=== PATIENT | female | born 1970 | race Caucasian/White ===

== ENCOUNTER 2017-03-06 09:00 | Inpatient (IN) | payer MEDICARE, MEDICAID ==
[2017-03-06] MEDS ORDERED: Bupivacaine 0.5%/EPINEPHrine 1:200,000 50 ML MDV ONE (11:08)
[2017-03-06] MEDS ORDERED: HYDROmorphone/Normal Saline 15 MG/30 ML PCA IV PRN (11:53)
[2017-03-06] MEDS ORDERED: Naloxone 0.4 MG/ML SDV IVPUSH PRN (11:53)
[2017-03-06] MEDS ORDERED: Naloxone 0.4 MG/ML SDV IV PRN (12:01)
[2017-03-06] MEDS ORDERED: Dextrose 5%-Lactated Ringers 1,000 ML IV SCH (12:15)
[2017-03-06] MEDS ORDERED: fentaNYL 25 MCG/HR Transdermal Patch TRDERM SCH (13:30)
[2017-03-06] MEDS ORDERED: Rocuronium 50 MG/5 ML Vial ONE (13:37)
[2017-03-06] MEDS ORDERED: Glycopyrrolate 0.2 MG/ML 5 ML MDV ONE (13:37)
[2017-03-06] MEDS ORDERED: Ondansetron 4 MG/2 ML SDV ONE (13:37)
[2017-03-06] MEDS ORDERED: Dexamethasone 4 MG/ML SDV ONE (13:37)
[2017-03-06] MEDS ORDERED: Neostigmine Methylsulfate 1 MG/ML 5 ML Syringe ONE (13:37)
[2017-03-06] MEDS ORDERED: Succinylcholine 200 MG/10 ML MDV ONE (13:37)
[2017-03-06] MEDS ORDERED: Midazolam 1 MG/ML 2 ML SDV ONE (13:41)
[2017-03-06] MEDS ORDERED: Propofol 200 MG/20 ML SDV ONE (13:41)
[2017-03-06] MEDS: cefOXitin 2 GM in Sodium Chloride 0.9% 50 ML IV ONE ×2 (14:37→20:46)
[2017-03-06] MEDS ORDERED: Linezolid 200 MG/100 ML Bag IRR ONE ×2 (14:52→15:10)
[2017-03-06] MEDS: Meropenem 500 MG SDV ONE ×2 (14:52→15:10)
[2017-03-06] MEDS ORDERED: Lactated Ringers 1,000 ML ONE ×2 (16:47→16:48)
[2017-03-06] MEDS ORDERED: hydrOXYzine HCl 100 MG/2 ML SDV IM ONE (17:49)
[2017-03-06] MEDS ORDERED: hydrOXYzine HCl 100 MG/2 ML SDV IM PRN (19:08)
[2017-03-06] MEDS ORDERED: Ondansetron 4 MG/2 ML SDV IV PRN (19:08)
[2017-03-06] MEDS: Cyclobenzaprine 10 MG Tab PO PRN (20:22)
[2017-03-06] MEDS: VERIFY FENTANYL PATCH TOP SCH ×2 (20:53→20:54)
[2017-03-06] MEDS: Dextrose 5%-Lactated Ringers 1,000 ML IV SCH (21:05)
[2017-03-06] MEDS: Amitriptyline 25 MG Tab PO SCH (21:05)
[2017-03-06] MEDS: ceFAZolin 2 GM in Premix Bag 1 BAG IV SCH (23:03)
[2017-03-07] MEDS ORDERED: Lactated Ringers 500 ML IV SCH (00:15)
[2017-03-07] MEDS: Cyclobenzaprine 10 MG Tab PO PRN ×3 (02:38→15:20)
[2017-03-07] MEDS: Dextrose 5%-Lactated Ringers 1,000 ML IV SCH (04:05)
[2017-03-07] MEDS ORDERED: Levothyroxine 25 MCG Tab PO SCH (07:30)
[2017-03-07] MEDS ORDERED: Dextrose 5%-Lactated Ringers 1,000 ML IV SCH (07:52)
[2017-03-07] MEDS: ceFAZolin 2 GM in Sodium Chloride 0.9% 50 ML IV SCH ×2 (08:40→16:59)
[2017-03-07] MEDS: DULoxetine 30 MG Cap PO SCH (08:42)
[2017-03-07] MEDS: Levothyroxine 75 MCG Tab PO SCH (08:42)
[2017-03-07] MEDS: Furosemide 40 MG Tab PO SCH (08:42)
[2017-03-07] MEDS: Potassium Chloride 20 MEQ Tab.ER PO SCH (08:42)
--- NOTE | 2017-03-07 08:49 | PN ---
DATE OF SERVICE: 03/06/2017 SUBJECTIVE: Jeff is postop day one. She states her pain is controlled. She has been up sitting in the chair ambulating. Denies any other associated signs and symptoms. OBJECTIVE: GENERAL: Jeff is a 46-year-old female. VITAL SIGNS: TPR is 98.7, 74, 18. Blood pressure 94/47. HEENT: Negative. NECK: Supple. HEART: Regular rate and rhythm. LUNGS: Clear. ABDOMEN: Dressings dry and intact. Abdominal binder is on. She has two GREYSON drains, one put out 110 and #2 put out 110 of a pink serosanguineous drainage. EXTREMITIES: SCDs are on and there is no peripheral edema. ASSESSMENT: Open repair of umbilical incarcerated incisional hernia with mesh and panniculectomy for incarcerated incisional hernia, umbilical hernia, and chronic panniculitis. Date of surgery 03/06/2017. PLAN: 1. Step 4 gastric bypass diet, double portions. 2. Dressing off, may shower. 3. Discontinue [employer] and continuous pulse ox. 4. Restart her home oxycodone 5 mg q.6 hours p.r.n. pain, to call if this does not hold her pain. Her home medications were restarted yesterday per Blake Stearns MD. 5. Good pulmonary toilet encouraged. 6. We will evaluate p.r.n. or in a.m. Sandy Lopes PA-C /[id number]
[2017-03-07] MEDS: hydrOXYzine HCl 25 MG Tab PO PRN ×2 (08:53→19:39)
[2017-03-07] MEDS ORDERED: PHENTERMINE 37.5 MG PO SCH (09:00)
[2017-03-07] MEDS: VERIFY FENTANYL PATCH TOP SCH ×2 (09:00→22:08)
[2017-03-07] MEDS ORDERED: POTASSIUM CHLORIDE 40 MEQ PO SCH (09:00)
[2017-03-07] MEDS: ceFAZolin 2 GM in Premix Bag 1 BAG IV SCH (09:00)
[2017-03-07] MEDS: Cyanocobalamin (Vitamin B12) 1,000 MCG Tab SL SCH (10:39)
[2017-03-07] MEDS: Multivitamins with Iron/Calcium/Folic Acid/Minerals Tab PO SCH (10:39)
[2017-03-07] MEDS: Folic Acid 1 MG Tab PO SCH (10:39)
[2017-03-07] MEDS: oxyCODONE 5 MG Tab PO SCH ×3 (10:41→22:08)
[2017-03-07] MEDS: ALPRAZolam 0.5 MG Tab PO PRN ×2 (11:47→19:39)
[2017-03-07] MEDS ORDERED: Bisacodyl 5 MG Tab PO ONE (20:12)
[2017-03-07] MEDS ORDERED: Bisacodyl 5 MG Tab PO PRN (20:14)
[2017-03-07] MEDS: Amitriptyline 25 MG Tab PO SCH (22:08)
[2017-03-07] MEDS: Zolpidem 5 MG Tab PO SCH (22:13)
[2017-03-08] MEDS: oxyCODONE 5 MG Tab PO SCH ×4 (04:36→21:14)
[2017-03-08] MEDS ORDERED: Polyethylene Glycol 3350 Powder 17 GM Packet PO ONE (07:23)
[2017-03-08] MEDS ORDERED: Polyethylene Glycol 3350 Powder 119 GM Bottle PO ONE (07:30)
--- NOTE | 2017-03-08 08:04 | PN ---
DATE OF SERVICE: 03/08/2017 SUBJECTIVE: Jeff reports pain in her right mid quadrant that radiates under her right rib cage. She has also had a lot of gas pain, but unable to pass any flatus. She states incision feels good. She has been up and ambulating. REVIEW OF SYSTEMS: Remainder of review of systems negative for any pertinent positives and negatives. OBJECTIVE: GENERAL: Jeff Cabrera is a pleasant 46-year-old female. VITAL SIGNS: TPR 97.6, 70, 16. Blood pressure 85/42. HEENT: Negative. NECK: Supple. HEART: Regular rate and rhythm. LUNGS: Clear to auscultation in all four jimenez. No wheezing, rales, or rhonchi. Incisions look good. She has 2 GREYSON drains, they are putting out a light pink serous drainage. There is tenderness noted in the right upper quadrant. ABDOMEN: Soft and nondistended. EXTREMITIES: No peripheral edema. ASSESSMENT: Open repair of umbilical incarcerated incisional hernia with mesh, and panniculectomy for incarcerated incisional hernia, umbilical hernia, chronic panniculitis. Date of surgery 03/06/2017. PLAN: 1. MiraLAX 119 g p.o. this morning. 2. Continue to ambulate in [place]. 3. We will evaluate p.r.n. or in a.m. Sandy Lopes PA-C /[id number]
[2017-03-08] MEDS: DULoxetine 30 MG Cap PO SCH (08:28)
[2017-03-08] MEDS: Levothyroxine 75 MCG Tab PO SCH (08:28)
[2017-03-08] MEDS: Multivitamins with Iron/Calcium/Folic Acid/Minerals Tab PO SCH (08:28)
[2017-03-08] MEDS: Potassium Chloride 20 MEQ Tab.ER PO SCH (08:29)
[2017-03-08] MEDS: Furosemide 40 MG Tab PO SCH (08:29)
[2017-03-08] MEDS: Cyanocobalamin (Vitamin B12) 1,000 MCG Tab SL SCH (08:29)
[2017-03-08] MEDS: Folic Acid 1 MG Tab PO SCH (08:30)
[2017-03-08] MEDS: VERIFY FENTANYL PATCH TOP SCH ×2 (08:30→21:07)
[2017-03-08] MEDS: Cyclobenzaprine 10 MG Tab PO PRN (08:45)
[2017-03-08] MEDS ORDERED: fentaNYL 25 MCG/HR Transdermal Patch TRDERM SCH (09:00)
[2017-03-08] MEDS: ALPRAZolam 0.5 MG Tab PO PRN ×2 (11:18→21:13)
[2017-03-08] MEDS: hydrOXYzine HCl 25 MG Tab PO PRN (14:07)
[2017-03-08] MEDS: Amitriptyline 25 MG Tab PO SCH (21:06)
[2017-03-08] MEDS: Zolpidem 5 MG Tab PO SCH (21:13)
[2017-03-09] MEDS: oxyCODONE 5 MG Tab PO SCH ×2 (03:41→09:07)
[2017-03-09 07:41] VITALS: BP 96/63
[2017-03-09] MEDS: Levothyroxine 75 MCG Tab PO SCH (07:54)
[2017-03-09] MEDS: hydrOXYzine HCl 25 MG Tab PO PRN (08:01)
--- NOTE | 2017-03-09 08:21 | DISCH ---
ADMISSION DIAGNOSES: Umbilical incarcerated incisional hernia and chronic panniculitis, status post Talia-en-Y gastric bypass surgery, unspecified surgical malabsorption, B12 deficiency, vitamin D deficiency, unspecified surgical malabsorption, adjustment disorder with depressed mood, hypertension, anxiety, degenerative joint disease, hypothyroidism, and chronic pain opiate medications, DISCHARGE DIAGNOSES: Open repair of umbilical incarcerated hernia and repair of incisional hernia with mesh, and panniculectomy. For incarcerated incisional hernia, incarcerated umbilical hernia, and chronic panniculitis date of surgery, 03/06/2017. HISTORY: Jeff Cabrera had umbilical and incisional hernias with chronic panniculitis. After preoperative evaluation and discussion of possible risks and possible complications, she wished to proceed with surgical procedure. HOSPITAL COURSE: Jeff had her surgery on 03/06/2017. She had no operative complications. On postop day #2 and #3, her pain was managed, she tolerated a diet well. She was given bowel stimulation on postop day #2, had a bowel movement. On postop day #4, her vital signs remained stable. She was educated on how to take care of her GREYSON drains when she was home. Pain was managed. Oral intake adequate. She was able to be discharged to home on 03/09/2017. PHYSICAL EXAMINATION: GENERAL: Jeff Cabrera is a 46-year-old female. VITAL SIGNS: Height is 5 feet 8.11 inches, weight is 185 pounds. TPR is 96.9, 70, 18, blood pressure 108/64. HEENT: Negative. NECK: Supple. HEART: Regular rate and rhythm. LUNGS: Clear. ABDOMEN: Stapled incision looks good. There is no hematoma or drainage noted. GREYSON drains x2 have put out 45 and 25 mL of a light pink serous drainage. EXTREMITIES: Without peripheral edema. DISPOSITION: Discharged to home. CONDITION: Stable and improving. FOLLOWUP APPOINTMENT: Sandy Lopes PA-C on 03/19/2017 at 10:00 a.m. She is to resume her home medications. There were no new prescriptions given at the time of discharge. HOME MEDICATIONS: Include Xanax 0.5 mg t.i.d., Elavil 25 mg at bedtime, vitamin B12 25 mcg sublingual daily, Cymbalta 60 mg oral daily, folic acid 1 mg oral daily, Lasix 40 mg oral daily, Synthroid 150 mcg oral daily, multivitamin one tablet daily, nystatin one applicator topical twice daily to affected area, phentermine 37.5 mg oral daily, potassium chloride 40 mEq oral daily, Ambien 10 mg oral daily, fentanyl patch one transderm every 72 hours, oxycodone 5 mg every 4 hours. DIET AFTER DISCHARGE: Usual diet as tolerated. Drink 8 to 10 glasses of water a day. DISCHARGE INSTRUCTIONS: Activity, as tolerated. No lifting greater than 10 pounds for 6 weeks. Driving, do not drive on pain medication. Shower bathing, may shower. Keep site clean and dry. Wear abdominal binder for 4 weeks and then as tolerated. Use incentive spirometer 10 times every hour while awake for 2 weeks. Strip empty and measure GREYSON drains 4 times a day and when half full, bring record of drainage to clinic appointment.
[2017-03-09] MEDS: Cyanocobalamin (Vitamin B12) 1,000 MCG Tab SL SCH (08:25)
[2017-03-09] MEDS: Potassium Chloride 20 MEQ Tab.ER PO SCH (08:26)
[2017-03-09] MEDS: DULoxetine 30 MG Cap PO SCH (08:26)
[2017-03-09] MEDS: Multivitamins with Iron/Calcium/Folic Acid/Minerals Tab PO SCH (08:26)
[2017-03-09] MEDS: Folic Acid 1 MG Tab PO SCH (08:26)
[2017-03-09] MEDS: Furosemide 40 MG Tab PO SCH (08:26)
[2017-03-09] MEDS: VERIFY FENTANYL PATCH TOP SCH (08:27)
--- NOTE | 2017-03-09 08:27 | OR ---
DATE OF PROCEDURE: 03/06/2017 PREOPERATIVE DIAGNOSES: 1. Incarcerated incisional hernia. 2. Chronic panniculitis causing chronic fungal rash as well as some back discomfort. POSTOPERATIVE DIAGNOSES: 1. Incarcerated incisional hernia. 2. Chronic panniculitis causing chronic fungal rash as well as some back discomfort. 3. Uncomplicated umbilical hernia. OPERATIVE PROCEDURE: 1. Open repair of umbilical and incarcerated incisional hernias with mesh (90298, [id number], [id number]). 2. Panniculectomy (19429). ANESTHESIA: General. INDICATION FOR PROCEDURE: This is a 46-year-old status post Talia-en-Y gastric bypass in 2003 presenting with some problems with ongoing panniculitis. She has an ongoing fungal rash below the pannicular folds which had been refractory to a variety of medical approaches. She also has with the large pannus some orthopedic discomfort in her back and the plan is to proceed with panniculectomy. She also has an incisional hernia, which is not entirely reducible in the upper midline incision and this will be repaired from within using mesh repairs as well. Potential risks of the procedure including bleeding, infection, injury to underlying viscera, problems with mesh becoming infected, the hernia recurring, as well as remote possibility of cardiopulmonary, septic, or hemorrhagic complications leading to were all reviewed, and the patient wishes to proceed. DETAILS OF PROCEDURE: The patient was taken to the operating room and placed in a supine position. After general endotracheal anesthesia was induced, a Noe catheter was inserted and the abdomen prepped and draped. Initially, a transverse elliptical incision across the lower aspect of the abdomen was made and carried down through the skin and subcutaneous tissue and down to the level of the fascia. The pannus was then reflected off the abdominal wall up to the level of the midline and then up to the area just below the umbilicus. The patient was noted to have umbilical hernia, which was initially divided away from the overlying pannus and that was initially closed with a [id number] stitch of #2 Vicryl stitch. The dissection continued somewhat superiorly where the hernia sac located just above the umbilicus was encountered. This was opened and the hernia sac excised and reflected downward. The patient was noted to have quite a bit in the way of omental adhesions to the abdominal wall in that area, these were taken down with a combination of ligature dissection, cautery as well as vivian. Once the area around the hernia was satisfactorily cleared, a 12 x [address] hernia patch was selected. At roughly 5 cm around the circumference of the mesh 2-0 Vicryl sutures were placed on the polypropylene side of the mesh, clarke were made on the skin where the stab wounds would be made to pull the mesh up to secure it well away from the area of the hernia. The mesh was soaked in antibiotic- containing saline solution and then placed in an intraperitoneal location and the sutures then pulled up into the full thickness abdominal wall or in the area below the incision through the abdominal wall musculature and peritoneum. Once these were in place, they were pulled up and tied, and there appeared to be good fixation of the mesh well away from the edges of the hernia. Mesh was then further fixed at the site of the abdominal wall with titanium tacking screws, these were placed within the shelf within the lateral aspect of the mesh for a direct contact with the adjacent viscera and the hernia vivian. At this point, the area was irrigated with antibiotic-containing saline solution. Once again, the midline fascia of the hernia site was then closed with a running 2-0 Vicryl stitch, it was noted that the mesh did overlap the umbilical hernia site as well to some extent. The patient had then two Mil-Robertson drains were placed through the stab wound superior to the main incision and one placed in each direction across the bed of the panniculectomy. The latter was then closed with layers of 3-0 and 4-0 Vicryl stitch deep and vivian for the skin. Dressing was applied. The patient was taken to the recovery room in satisfactory condition. Blake Stearns MD /[id number]
== END 2017-03-09 09:15 | disposition home or self-care (01) | DRG 354 ==
LOC: EDSTATUS 09:00 → JP.MS 11:29 → JP.SDS 11:29 → JP.2SS 17:05
PROVIDERS: ADMIT Surgery; ATTEND Surgery
PROC: 0HB7XZZ Excision of Abdomen Skin, External Approach (ICD-10-PCS; principal; 2017-03-06)
PROC: 0WUF0JZ Supplement Abdominal Wall with Synthetic Substitute, Open Approach (ICD-10-PCS; principal; 2017-03-06)
DX: K43.0 Incisional hernia with obstruction, without gangrene (principal); B48.8 Other specified mycoses; K91.2 Postsurgical malabsorption, not elsewhere classified; K42.0 Umbilical hernia with obstruction, without gangrene; M79.3 Panniculitis, unspecified; L98.7 Excessive and redundant skin and subcutaneous tissue; Z98.84 Bariatric surgery status; M54.9 Dorsalgia, unspecified; Z98.0 Intestinal bypass and anastomosis status; I10 Essential (primary) hypertension; E03.9 Hypothyroidism, unspecified; F17.210 Nicotine dependence, cigarettes, uncomplicated; J44.9 Chronic obstructive pulmonary disease, unspecified; M19.90 Unspecified osteoarthritis, unspecified site; Z79.891 Long term (current) use of opiate analgesic; F43.23 Adjustment disorder with mixed anxiety and depressed mood
CPT/HCPCS: 88302; 94762; A9270-GY; C1781; J0330; J0690; J0694; J1100; J1170; J2020; J2185; J2250; J2405; J2704; J3010; J3410; J7042; J7050; J7120